=== PATIENT | female | born 2000 | race Caucasian/White ===

== ENCOUNTER 2023-12-30 14:28 | Emergency (ER) | payer BC, SELFPAY ==
[2023-12-30] VITALS (10 sets, daily range): BP systolic 117–132; BP diastolic 69–111; BMI 23.2
--- NOTE | 2023-12-30 14:53 | ED.GENMED ---
History of Present Illness
<Kenzie Caraballo PA-C - Last Filed: 12/31/23 10:35>
General
Chief Complaint: Abdominal Symptoms
Source: patient
Exam Limitations: none
Time Seen by Provider: 12/30/23 14:46
Nursing documentation reviewed up to this point in time: agreed with
History of Present Illness
History of Present Illness:
23 y/o F h/o anxiety, panic disorder, and GERD
here with nnausea/vomiting today for several hours after taking macrobid on an empty stomach
she says she has had macrobid before without problems but when she takes abx on empty stomach she has had vomiting episodes in the past
she went to PCP yesterday for urinary frequency and start of UTI sxs, had blood in the urine and was treated with macrobid
pt says she started vomiting today and took a zofran but then vomited it up, she hadhad [place] from previous
pt denies taking meds for psych/anxiety
she also denies marijuana use, alcohol use, other drugs
pt has epigastric pain
she is hyperventilating and shaking her arms and legs
she initially denied marijuana abut then she admitted to medical marijuana and using it last week
she has been to [facility] several times for this and was told it could be cannabis hyperemesis but she doesn't believe so
she last was there a few months ago and says she gets this every few months but has never arron admitted
Past History
<Kenzie Caraballo PA-C - Last Filed: 12/31/23 10:35>
Past History
ED Past Medical History: Psychiatric and Other (Gastritis)
ED Past Surgical History: Other
Social History
Tobacco: Non-smoker
Alcohol: Other
Drug: Marijuana and Other
Personal: Other
Employment: Other
Family History
Family History: Other
Review of Systems
<Kenzie Caraballo PA-C - Last Filed: 12/31/23 10:35>
Review of Systems
Allergies reviewed?: Yes
All Other Systems: Not applicable
Phy Exam
<Kenzie Caraballo PA-C - Last Filed: 12/31/23 10:35>
Physical Exam
Physical Exam:
GENERAL: Alert , shaking, hyperventilating, tearful, retching
EYE: pupils equal and reactive
NECK: Supple
ENT: o/p clr, mmm.
CARDIAC: Regular rate and rhythm .
LUNGS: Clear breath sounds bilaterally, no acute respiratory distress, no wheezes/rales/rhonchi
ABDOMEN: Soft, flat, nondistended without focal tenderness, no r/g, no cvat, normal bowel sounds
NEUROLOGICAL: Alert and oriented, no focal neuro deficits
SKIN: Warm and diaphoretic;
MUSCULOSKELETAL: No edema, well perfused. neg lida's sign
PSYCH: Extremely anxious
Course
<Kenzie Caraballo PA-C - Last Filed: 12/31/23 10:35>
Orders/Labs/Results
Orders:
Orders
12/30/23 15:06
Lorazepam [Ativan] 0.5 mg IV NOW STA
Ondansetron Injectable [Zofran] 4 mg IV NOW STA
Pantoprazole [Protonix IV] 40 mg IV NOW STA
Test Result ONCE
12/30/23 15:20
Alcohol Urgent
Complete Blood Count/With Diff Urgent
Comprehensive Metabolic Panel Urgent
HCG, Serum Qualitative Screen Urgent
Lipase Urgent
12/30/23 15:43
Electrocardiogram (*1) Urgent
Reason for Study: QTc Monitoring
EKG- Treatment ONCE
12/30/23 15:44
Add On- LAB Urgent
Tests Added?: alcohol
12/30/23 15:58
US Abdomen Complete/Upper Urgent
Comment:
Reason For Exam: upper abd pain, vomitnig
12/30/23 16:02
Diphenhydramine [Benadryl] 12.5 mg IV NOW STA
Haloperidol Lactate [Haldol] 1 mg IV NOW STA
12/30/23 16:13
EKG- Treatment ONCE
12/30/23 17:16
0.9% Sodium Chloride 500 ml [Nss] 1,000 ml IV ONCE
12/30/23 19:39
Diphenhydramine [Benadryl] 12.5 mg IV NOW STA
Haloperidol Lactate [Haldol] 1 mg IV NOW STA
12/30/23 19:49
EKG- Treatment ONCE
Abnormal Lab Results
12/30/23
15:20
WBC 11.9 H 10^3/uL
(4.8-10.8)
Absolute Neuts (auto) 9.7 H 10^3/uL
(1.4-6.5)
Neutrophils % 81.7 H %
(42.2-75.2)
Lymphocytes % 12.6 L %
(20.5-51.1)
Carbon Dioxide 19 L mmol/L
(22-30)
Glucose 130 H mg/dl
(70-99)
Calcium 10.3 H mg/dl
(8.4-10.2)
AST 55 H U/L
(14-36)
ALT 40 H U/L
(0-35)
Albumin 5.4 H g/dl
(3.5-5.0)
12/30/23 15:20
12/30/23 15:20
Vital Signs
Initial and Last Documented VS:
Initial Vital Signs
Temp Pulse Resp BP Pulse Ox
98.0 F 85 16 127/94 98
12/30/23 14:39 12/30/23 14:39 12/30/23 14:39 12/30/23 14:39 12/30/23 14:39
Last Documented Vital Signs
Temp Pulse Resp BP Pulse Ox
98.4 F 60 19 123/81 98
12/30/23 18:00 12/30/23 21:45 12/30/23 21:45 12/30/23 21:00 12/30/23 21:45
<Clyde Carlson MD - Last Filed: 12/30/23 21:33>
Orders/Labs/Results
Orders:
Orders
12/30/23 15:06
Lorazepam [Ativan] 0.5 mg IV NOW STA
Ondansetron Injectable [Zofran] 4 mg IV NOW STA
Pantoprazole [Protonix IV] 40 mg IV NOW STA
Test Result ONCE
12/30/23 15:20
Alcohol Urgent
Complete Blood Count/With Diff Urgent
Comprehensive Metabolic Panel Urgent
HCG, Serum Qualitative Screen Urgent
Lipase Urgent
12/30/23 15:43
Electrocardiogram (*1) Urgent
Reason for Study: QTc Monitoring
EKG- Treatment ONCE
12/30/23 15:44
Add On- LAB Urgent
Tests Added?: alcohol
12/30/23 15:58
US Abdomen Complete/Upper Urgent
Comment:
Reason For Exam: upper abd pain, vomitnig
12/30/23 16:02
Diphenhydramine [Benadryl] 12.5 mg IV NOW STA
Haloperidol Lactate [Haldol] 1 mg IV NOW STA
12/30/23 16:13
EKG- Treatment ONCE
12/30/23 17:16
0.9% Sodium Chloride 500 ml [Nss] 1,000 ml IV ONCE
12/30/23 19:39
Diphenhydramine [Benadryl] 12.5 mg IV NOW STA
Haloperidol Lactate [Haldol] 1 mg IV NOW STA
12/30/23 19:49
EKG- Treatment ONCE
Abnormal Lab Results
12/30/23
15:20
WBC 11.9 H 10^3/uL
(4.8-10.8)
Absolute Neuts (auto) 9.7 H 10^3/uL
(1.4-6.5)
Neutrophils % 81.7 H %
(42.2-75.2)
Lymphocytes % 12.6 L %
(20.5-51.1)
Carbon Dioxide 19 L mmol/L
(22-30)
Glucose 130 H mg/dl
(70-99)
Calcium 10.3 H mg/dl
(8.4-10.2)
AST 55 H U/L
(14-36)
ALT 40 H U/L
(0-35)
Albumin 5.4 H g/dl
(3.5-5.0)
12/30/23 15:20
12/30/23 15:20
Vital Signs
Initial and Last Documented VS:
Initial Vital Signs
Temp Pulse Resp BP Pulse Ox
98.0 F 85 16 127/94 98
12/30/23 14:39 12/30/23 14:39 12/30/23 14:39 12/30/23 14:39 12/30/23 14:39
Last Documented Vital Signs
Temp Pulse Resp BP Pulse Ox
98.4 F 60 19 123/81 98
12/30/23 18:00 12/30/23 21:45 12/30/23 21:45 12/30/23 21:00 12/30/23 21:45
<Kenzie Caraballo PA-C - Last Filed: 12/31/23 10:35>
MDM/Problems Addressed
Differential Diagnosis Includes:
cannabis hyperemesis, gastritis, anxiety, PUD
MDM/Problems Addressed:
23 y/o F
n/v/ epigastric pain today after abx for presumed UTI from PCP office 12/27
she is attributing these symptoms to her abx on empty stomach but she has had this happen many times and been to [facility], GI, pcp
she had endoscopy which was normal
initially did not disclose marijuana use but she has been prescribed medicla marijauna
pt was hyperventilating, sticking her fingers down her throat, holding her arms extended and rigid and shaking while awake and responding to me
she did not respond muc hto zofran protoix and small dose ativan
qtc 450
will try haldol and benadryl
i spoke with pt's PCP who was able to tell me the urine culture was negative and sosshe can stop the macrobid
but that pt has had exetensive w/u for this vomiting and has seen GI
pt apparently is resistant to the idea that this is induced from cannabis but that is the working diagnosis
<Kenzie Caraballo PA-C - Last Filed: 12/31/23 10:35>
*Critical Care Note
Total Time (30-74mins, 75-104mins- exclusive of procedures): Not Applicable
ED Attending Note
<Kenzie Caraballo PA-C - Last Filed: 12/31/23 10:35>
-
Portions of this chart may have been created with voice recognition software.� Occasional wrong word or��sound alike� substitutions may have occurred due to the inherent limitations of voice recognition software.
<Clyde Carlson MD - Last Filed: 12/30/23 21:33>
ED Attending Note
Patient seen and examined by attending physician: Yes
I performed the substantive portion of visit, reviewed & personally made and approve the management plan that is documented in note by myself or MALORIE.: Yes
ED Attending Note:
Patient has been rechecked multiple times. Clinically stable. Benign abdomen. Warm and dry. Perfusing well. No distress. She was given a second dose of Haldol and Benadryl. She is doing well and is comfortable with discharge. No acute
findings on ultrasound. Aware of minimal LFT elevation will follow this up. Patient does have a ride home.
Discharge Plan
Departure
Patient Disposition: Home (Routine Discharge)
Date of Disposition: 12/30/23
Time of Disposition: 21:31
Patient with high blood pressure during this ER visit?: No
Discharge Problem:
Recurrent vomiting/abdominal pain
Instructions: Nausea and Vomiting, Adult (DC), Abdominal Pain
Prescriptions:
No Action
ondansetron 8 mg tablet,disintegrating
8 mg PO TID PRN (Reason: nausea and vomiting) Qty: 30 0RF
oxycodone 5 mg tablet
5 mg PO Q4H PRN (Reason: pain) Qty: 7 0RF
pantoprazole [Protonix] 40 mg tablet,delayed release (DR/EC)
40 mg PO BID Qty: 14 0RF
sucralfate [Carafate] 1 gram tablet
1 g PO QID Qty: 28 0RF
Referrals:
UNKNOWN - PT DOES,NOT KNOW [Unknown Provider] -
Activity Restrictions/Additional Instructions:
Follow-up closely with your physician in the next few days.
Return sooner if worse or any other concerning symptoms
Interventions
Interventions:
*Risk Screen - Suicide Last Done: 12/30/23 14:39
*General Assessment Last Done: 12/30/23 15:26
*Neglect/Abuse Screening Last Done: 12/30/23 14:39
ED- Fall Risk Assessment Last Done: 12/30/23 22:01
*ED COVID-19 Vaccine History Last Done: 12/30/23 15:26
*Nursing Disposition Last Done: 12/30/23 22:01
AD-Kgwjfm-Twjfkdwglk Assessment Last Done: 12/30/23 15:26
Discharge Date and Time
Discharge Date/Time: 12/30/23 22:02
Print Language: DJIBOUTIAN
[2023-12-30] MEDS: ZOFRAN 4 MG IV (15:13)
[2023-12-30] MEDS: ATIVAN 0.5 MG IV (15:15)
[2023-12-30] MEDS: PROTONIX IV 40 MG IV (15:16)
[2023-12-30 15:38] LABS: % Basophils 0.3 % (0-2); % Eosinophils 0.4 % (0-6); % Immature Granulocytes 0.3 % (0-0.5); % Lymphocytes 12.6 % (20.5-51.1); % Monocytes 4.7 % (1.7-9.3); % Neutrophils 81.7 % (42.2-75.2); Absolute Eosinophils 0.1 10^3/uL (0-0.7); Absolute Lymphocytes 1.5 10^3/uL (1.2-3.4); Absolute Monocytes 0.6 10^3/uL (0.1-0.6); Absolute Neutrophils 9.7 10^3/uL (1.4-6.5); Hematocrit 39.6 % (37.0-47.0); Hemoglobin 13.4 g/dL (12.0-16.0); Mean Corp Hgb Conc. 33.8 g/dL (33.0-37.0); Mean Corpuscular Hgb 28.9 pg (27.0-31.0); Mean Corpuscular Volume 85.5 fL (81.0-99.0); Mean Platelet Volume 9.3 fL (7.4-10.4); Nucleated Red Blood Cells % 0 %; Platelet Count 371 10^3/uL (130-400); Red Blood Cell Count 4.63 10^6/uL (4.20-5.40); Red Cell Dist. Width 12.8 % (11.5-14.5); White Blood Cell Count 11.9 10^3/uL (4.8-10.8)
[2023-12-30 15:48] LABS: HCG, Serum Qualitative Screen Negative
[2023-12-30 15:51] LABS: ALT (SGPT) 40 U/L (0-35); AST (SGOT) 55 U/L (14-36); Albumin 5.4 g/dl (3.5-5.0); Alkaline Phosphatase 53 U/L (38-126); Blood Urea Nitrogen 11 mg/dl (7-17); Calcium 10.3 mg/dl (8.4-10.2); Carbon Dioxide 19 mmol/L (22-30); Chloride 104 mmol/L (98-107); Glucose 130 mg/dl (70-99); Lipase 73 U/L (23-300); Potassium 4.3 mmol/L (3.5-5.1); Sodium 141 mmol/L (135-145); Total Bilirubin 0.4 mg/dl (0.2-1.3); Total Protein 7.9 g/dl (6.3-8.2); eGFR > 60.00
[2023-12-30] MEDS: BENADRYL 12.5 MG IV ×2 (16:09→19:43)
[2023-12-30 16:10] LABS: Alcohol None Detected
[2023-12-30] MEDS: HALDOL 1 MG IV ×2 (16:10→19:45)
[2023-12-30] MEDS: NSS 1000 IV (17:16)
== END 2023-12-30 22:02 | disposition home or self-care (01) ==
LOC: EMR 14:28
PROVIDERS: Physician Assistant; EMERGENCY PHYSICIAN Emergency Medicine; FAMILY PHYSICIAN Family Medicine
DX: R11.2 Nausea with vomiting, unspecified (principal); R10.9 Unspecified abdominal pain; K21.9 Gastro-esophageal reflux disease without esophagitis
CPT/HCPCS: 99285; 96374; 96375 ×4; 96376 ×2; 96361; 76700; 80053; 82077; 83690; 84703; 85025; 93005